=== PATIENT | male | born 1955 | race Caucasian/White ===

== ENCOUNTER 2018-12-03 17:34 | Emergency (ER) | payer OTHER ==
[~2018-12-03] VITALS: Ht 182.9 cm; Wt 72.6 kg
[2018-12-03] MEDS ORDERED: KETOROLAC 30 MG/ML VIAL. IM STA (17:56)
[2018-12-03] MEDS ORDERED: DIPHTH,PERTUSS(ACELL),TET TOX 0.5 ML DISP.SYRIN. VAX IM ONE (18:00)
--- NOTE | 2018-12-03 18:04 | PHYS DOC ---
Past Medical History Past Medical History: No Pertinent History Past Surgical History: Other Additional Past Surgical Histo: neck surgery Alcohol Use: None Drug Use: None Adult General Chief Complaint Chief Complaint: THUMB HPI HPI Patient is a 63 year old male presents to emergency department after he was using a cross bow around 5:00 PM and the string caught his L thumb and caused a laceration in part his finger nail come off. Rates his pain as 10 out of 10 in severity and sharp. Review of Systems Review of Systems Constitutional: Denies fever or chills [] Eyes: Denies change in visual acuity, redness, or eye pain [] HENT: Denies nasal congestion or sore throat [] Respiratory: Denies cough or shortness of breath [] Cardiovascular: No additional information not addressed in HPI [] GI: Denies abdominal pain, nausea, vomiting, bloody stools or diarrhea [] : Denies dysuria or hematuria [] Musculoskeletal: Reports trauma to 1st digit. Integument: Reports laceration to L thumb. Neurologic: Denies headache, focal weakness or sensory changes [] Endocrine: Denies polyuria or polydipsia [] Complete systems were reviewed and found to be within normal limits, except as documented in this note. Current Medications Current Medications Current Medications Medications (Trade) Dose Ordered Sig/Segun Start Time Stop Time Status Last Admin Dose Admin Bupivacaine HCl (Sensorcaine Mpf 0.5%) 30 ml 1X ONCE 12/03/18 19:45 12/03/18 19:53 DC 12/03/18 19:55 30 ML Cefazolin Sodium/ Dextrose 50 ml @ 100 mls/hr 1X ONCE 12/03/18 19:15 12/03/18 19:44 DC 12/03/18 19:38 100 MLS/HR Diphtheria/ Tetanus/Acell Pertussis (Boostrix) 0.5 ml ONCE ONCE 12/03/18 18:00 12/03/18 18:02 DC 12/03/18 18:39 0.5 ML Ketorolac Tromethamine (Toradol 30mg Vial) 30 mg 1X STAT 12/03/18 17:56 12/03/18 18:02 DC Lidocaine HCl 20 ml 1X STAT 12/03/18 18:20 12/03/18 18:24 DC 12/03/18 18:41 20 ML Morphine Sulfate (Morphine Sulfate) 4 mg 1X STAT 12/03/18 18:22 12/03/18 18:24 DC 12/03/18 18:36 4 MG Allergies Allergies Allergies Coded Allergies Type Severity Reaction Last Updated Verified No Known Drug Allergies 09/02/14 No Physical Exam Physical Exam Constitutional: Well developed, well nourished, no acute distress, non-toxic appearance. [] HENT: Normocephalic, atraumatic, bilateral external ears normal, oropharynx moist, no oral exudates, nose normal. [] Eyes: PERRLA, EOMI, conjunctiva normal, no discharge. [] Neck: Normal range of motion, no tenderness, supple, no stridor. [] Cardiovascular:Heart rate regular rhythm, no murmur [] Lungs & Thorax: Bilateral breath sounds clear to auscultation [] Abdomen: Bowel sounds normal, soft, no tenderness, no masses, no pulsatile masses. [] Skin: Warm, dry, no erythema, no rash. [] Back: No tenderness, no CVA tenderness. [] Extremities: Tenderness to L 1st digit distal with laceration that jags around the finger nail and the finger nail is partially off. Neurovascularly intact. Neurologic: Alert and oriented X 3, normal motor function, normal sensory function, no focal deficits noted. [] Psychologic: Affect normal, judgement normal, mood normal. [] Current Patient Data Vital Signs Vital Signs Date Time Temp Pulse Resp B/P (MAP) Pulse Ox O2 Delivery O2 Flow Rate FiO2 12/03/18 20:10 86 17 166/95 (118) 97 Room Air 12/03/18 17:43 97.5 97.5 Lab Values Laboratory Tests Test 12/03/18 18:25 White Blood Count 7.0 x10^3/uL (4.0-11.0) Red Blood Count 4.00 x10^6/uL (4.30-5.70) L Hemoglobin 13.0 g/dL (13.0-17.5) Hematocrit 38.4 % (39.0-53.0) L Mean Corpuscular Volume 96 fL (79-100) Mean Corpuscular Hemoglobin 33 pg (25-35) Mean Corpuscular Hemoglobin Concent 34 g/dL (31-37) Red Cell Distribution Width 14.3 % (11.5-14.5) Platelet Count 300 x10^3/uL (140-400) Neutrophils (%) (Auto) 55 % (31-73) Lymphocytes (%) (Auto) 27 % (24-48) Monocytes (%) (Auto) 11 % (0-9) H Eosinophils (%) (Auto) 6 % (0-3) H Basophils (%) (Auto) 1 % (0-3) Neutrophils # (Auto) 3.9 x10^3/uL (1.8-7.7) Lymphocytes # (Auto) 1.9 x10^3/uL (1.0-4.8) Monocytes # (Auto) 0.8 x10^3/uL (0.0-1.1) Eosinophils # (Auto) 0.4 x10^3/uL (0.0-0.7) Basophils # (Auto) 0.1 x10^3/uL (0.0-0.2) Prothrombin Time 13.3 SEC (11.7-14.0) Prothrombin Time INR 1.0 (0.8-1.1) Activated Partial Thromboplast Time 31 SEC (24-38) Sodium Level 143 mmol/L (136-145) Potassium Level 4.2 mmol/L (3.5-5.1) Chloride Level 105 mmol/L (98-107) Carbon Dioxide Level 29 mmol/L (21-32) Anion Gap 9 (6-14) Blood Urea Nitrogen 22 mg/dL (8-26) Creatinine 1.3 mg/dL (0.7-1.3) Estimated GFR (Cockcroft-Gault) 55.8 BUN/Creatinine Ratio 17 (6-20) Glucose Level 87 mg/dL (70-99) Calcium Level 8.6 mg/dL (8.5-10.1) Total Bilirubin 0.3 mg/dL (0.2-1.0) Aspartate Amino Transferase (AST) 18 U/L (15-37) Alanine Aminotransferase (ALT) 18 U/L (16-63) Alkaline Phosphatase 115 U/L (46-116) Total Protein 6.9 g/dL (6.4-8.2) Albumin 3.4 g/dL (3.4-5.0) Albumin/Globulin Ratio 1.0 (1.0-1.7) Laboratory Tests 12/03/18 18:25 Laboratory Tests 12/03/18 18:25 EKG EKG [] Radiology/Procedures Radiology/Procedures Indication: Laceration to L thumb. Procedure: The patient was placed in the appropriate position and anesthesia homa und the buprivicaine digital block. The area was then cleansed with NS 500 mL. The laceration was closed with 3 3-0 sutures. The wound area was then dressed with thumb spica splint. Total repaired wound length: 2 cm. The patient tolerated the procedure [TOLERATED]. Complications: Unable to put nail bed back under skin. Patient is seeing Hand at 10 AM in the morning. Interpreted by Dr. Mcdonald. L tuft fracture to the distal 1st phalange. Course & Med Decision Making Course & Med Decision Making Pertinent Labs and Imaging studies reviewed. (See chart for details) Will get imaging, Tetanus, and give supportive care. Imaging shows fracture. Will discuss with Dr. Sanchez. Also performed a digital b lock of the L 1st digit and washed out wound with copious NS 500 mL. Used 2% lidocaine for block. Discussed with Dr. Sanchez who recommends thumb spica splint and Augmentin and follow up in 1 week. Patient does not feel comfortable waiting a week. After discussion with Dr. Elizabeth (Attending) we do not feel comfortable sending patient home. Will call for hand surgery, discussed with Dr. Aquino who recommends partially suturing and having him see him in the morning at his clinic. Partially sutured thumb as hand requested. Unable to place nail bed back under skin. Will have nursing place in Thumb Spica splint and then will d/c home for follow up in hand clinic in the morning for further care. Kennedy Disclaimer Dragon Disclaimer This electronic medical record was generated, in whole or in part, using a voice recognition dictation system. Departure Departure Impression: Primary Impression: Open fracture of tuft of distal phalanx of left thumb Disposition: 01 HOME, SELF-CARE Condition: STABLE Patient Instructions: Thumb Fracture Additional Instructions: Thank you for visiting [facility]. We appreciate you trusting us with your care. If any additional problems come up don't hesitate to return to visit us. Please follow up with your primary care provider so they can plan additional care if needed and know about the problem that you had. If symptoms worsen come back to the Emergency Department. Any concerning symptoms that start such as chest pain, shortness of air, weakness or numbness on one side of the body, running high fevers or any other concerning symptoms return to the ER. Please follow up at [address] Logan Aquino at Address: [address] [place] [address] Scripts Hydrocodone/Apap 5-325 (NORCO 5-325 TABLET) 1 Each Tablet 1 TAB PO PRN Q6HRS PRN for PAIN for 3 Days, #10 TAB 0 Refills Prov: FRED SANCHEZ APRN 12/03/18 Amoxicillin/Potassium Clav (AUGMENTIN 875-125 TABLET) 1 Each Tablet 1 TAB PO BID for 7 Days, #14 TAB 0 Refills Prov: FRED SANCHEZ APRN 12/03/18 FRED SANCHEZ APRN Dec 03, 2018 18:04
[2018-12-03] MEDS ORDERED: LIDOCAINE 2% 20 ML VIAL. IJ STA (18:20)
[2018-12-03] MEDS ORDERED: MORPHINE SULFATE 4 MG/ML VIAL. IV STA (18:22)
[2018-12-03 19:31] LABS: BASO # 0.1 x10^3/uL (0.0-0.2); BASO % 1 % (0-3); EOS # 0.4 x10^3/uL (0.0-0.7); EOS % 6 % (0-3); HEMATOCRIT 38.4 % (39.0-53.0); LYMPH # 1.9 x10^3/uL (1.0-4.8); LYMPH % 27 % (24-48); MEAN CORPUSCULAR HEMOGLOBIN 33 pg (25-35); MEAN CORPUSCULAR HGB CONC 34 g/dL (31-37); MEAN CORPUSCULAR VOLUME 96 fL (79-100); MONO # 0.8 x10^3/uL (0.0-1.1); MONO % 11 % (0-9); NEUT # 3.9 x10^3/uL (1.8-7.7); NEUT % 55 % (31-73); PLATELET COUNT 300 x10^3/uL (140-400); RED CELL DISTRIBUTION WIDTH 14.3 % (11.5-14.5)
[2018-12-03 19:36] LABS: CALCIUM 8.6 mg/dL (8.5-10.1); CREATININE 1.3 mg/dL (0.7-1.3); GFR 55.8; POTASSIUM 4.2 mmol/L (3.5-5.1)
[2018-12-03] MEDS ORDERED: AMOX1TAB61 PO (19:39)
[2018-12-03 19:41] LABS: PROTHROMBIN TIME PATIENT 13.3 SEC (11.7-14.0)
[2018-12-03 19:42] LABS: ALBUMIN 3.4 g/dL (3.4-5.0); TOTAL BILIRUBIN 0.3 mg/dL (0.2-1.0); TOTAL PROTEIN 6.9 g/dL (6.4-8.2)
[2018-12-03] MEDS ORDERED: BUPIVACAINE MPF 0.5% 30 ML VIAL. INJ ONE (19:45)
[2018-12-03 20:10] VITALS: BP 166/95
[2018-12-03] MEDS ORDERED: HYDR-3164 PO (20:21)
--- NOTE | 2018-12-03 23:48 | RAD ---
[facility]-view left hand radiographs 12/03/2018 CLINICAL HISTORY: Crosbow accident with injury to the left thumb. PA, lateral and oblique digital radiographs ofthe left hand were obtained. An acute comminuted fracture of the distal diaphysis/metaphysis of the distal phalanx of the left thumb is seen. This is associated soft tissue injury. The major fracture fragments are displaced distally and medially and angulated medially. No additional fracture is seen. Moderate to severe degenerative changes are seen involving the radial aspect of the midcarpal joint. IMPRESSION: Acute comminuted fracture of the distal phalanx of the left first finger. Electronically signed by: Fareed Dacosta MD (12/03/2018 11:46 PM) [facility]
== END 2018-12-03 21:14 | disposition home or self-care (01) ==
LOC: ER 17:34
DX: S62.522B Displaced fracture of distal phalanx of left thumb, initial encounter for open fracture (principal); W23.0XXA Caught, crushed, jammed, or pinched between moving objects, initial encounter; Y93.89 Activity, other specified; Y92.89 Other specified places as the place of occurrence of the external cause; Y99.8 Other external cause status
CPT/HCPCS: 29125; 36415; 73130; 80053; 85025; 85610; 85730; 90471; 90715; 96365; 96375; 99285; J0696; J2001; J2270; J3490